=== PATIENT | male | born 1965 | race Caucasian/White ===

== ENCOUNTER 2017-03-16 06:16 | Day surgery (SDC) | payer BC ==
[~2017-03-16 06:16] MED LIST: ALIGN4 M1 PO; CULTURELLE1 EAC1 PO; IBUPROFEN200 M2 PO; LEXAPRO10 M2 PO; NORCO 5-325 TA1 EACH PO; POTASSIUM CHLO10 ME1 PO; PROBIOTIC1 EA10 PO
[2017-03-16 07:45] LABS: INR 1.1 INR (0.9-1.1); PROTHROMBIN TIME 12.4 SECONDS (9.0-13.6)
== END 2017-03-16 10:30 ==
LOC: US 06:16 → SHSA 06:40
PROVIDERS: Radiology Diagnostic Radiology
PROC: 0W9G3ZZ Drainage of Peritoneal Cavity, Percutaneous Approach (ICD-10-PCS; principal; 2017-03-16)
DX: R18.8 Other ascites (principal); E11.9 Type 2 diabetes mellitus without complications; E87.6 Hypokalemia; C25.9 Malignant neoplasm of pancreas, unspecified; G62.0 Drug-induced polyneuropathy; R63.4 Abnormal weight loss; D64.81 Anemia due to antineoplastic chemotherapy; D70.1 Agranulocytosis secondary to cancer chemotherapy; J45.909 Unspecified asthma, uncomplicated; I10 Essential (primary) hypertension; Z68.26 Body mass index [BMI] 26.0-26.9, adult; Z79.899 Other long term (current) drug therapy; Z80.0 Family history of malignant neoplasm of digestive organs; Z80.8 Family history of malignant neoplasm of other organs or systems; Z98.890 Other specified postprocedural states
CPT/HCPCS: C1729; J7030